=== PATIENT | female | born 1965 | race Caucasian/White ===

== ENCOUNTER 2019-06-17 12:14 | Emergency (ER) | payer BC ==
[~2019-06-17] VITALS: Ht 167.6 cm; Wt 57.6 kg
[~2019-06-17 12:14] MED LIST: FLEXERIL PO; NORCO 5-325 TA1 EACH PO
[2019-06-17] MEDS ORDERED: CLARITIN10 MG PO (12:24)
[2019-06-17 13:04] LABS: ABSOLUTE LYMPHOCYTES 0.8 thou/uL (0.8-5.3); ABSOLUTE MONOCYTES 0.3 thou/uL (0.0-1.2); ABSOLUTE NEUTROPHILS 3.4 thou/uL (1.6-8.1); BASOPHILS 0.7 %; EOSINOPHILS 0.3 %; HEMATOCRIT 39.4 % (37.0-47.0); HEMOGLOBIN 13.7 gm/dL (12.0-15.0); LYMPHOCYTES 17.9 %; MCH 29.3 pg (26.0-34.0); MCHC 34.8 g/dL (28.0-37.0); MCV 84.1 fL (80.0-100.0); MONOCYTES 5.7 %; MPV 6.3 fl. (7.2-11.1); NUCLEATED RBCS 0 /100WBC; PLATELET COUNT* 264 thou/uL (150-400); POLYS 75.4 %; RBC 4.69 mil/uL (4.20-5.00); RDW-CV 14.3 % (10.5-14.5); WBC 4.6 thou/uL (4.0-11.0)
[2019-06-17 13:17] LABS: APTT 26.6 Seconds (25.0-31.3); PROTIME 10.5 Seconds (9.20-11.50)
[2019-06-17 13:19] LABS: CALCIUM 9.4 mg/dL (8.5-10.1); CREATININE 0.8 mg/dL (0.6-1.3); POTASSIUM 4.2 mmol/L (3.5-5.1)
[2019-06-17 13:27] LABS: ALBUMIN 4.2 g/dL (3.4-5.0); TOTAL BILIRUBIN 0.4 mg/dL (<0.1-1.0); TOTAL PROTEIN 7.2 g/dL (6.4-8.2)
--- NOTE | 2019-06-17 14:33 | EKG ---
[place] [address] ELECTROCARDIOGRAM REPORT Name: NISANATACHA Room: [facility]#: [id number] Admission: 06/17/19 Attend Phys: Discharge: Date of : 61 Date of Service: 06/17/19 1219 Report #: [id number] THIS REPORT FOR: //name// [facility] ED Test Date: 2019-06-17 Test Time: 12:19:21 Pat Name: NATACHA PAULA Department: Room: Gender: [employer] Counselor: MARYJANE HERNÁNDEZ : 1965 Requested By: Kalia Castillo Order Number: [id number] : Dhruv Rae Measurements Intervals [place] Rate: 69 P: 73 [place]: 146 QRS: 41 QRSD: 100 T: 64 QT: 435 QTc: 466 Interpretive Statements Sinus rhythm Borderline low voltage, extremity leads Baseline wander in lead(s) V3 No previous ECG available for comparison Electronically Signed On 06-17-2019 14:31:22 CDT by Dhruv Rae [email or web address] <ELECTRONICALLY SIGNED> By: Dhruv Rae MD, [facility] 06/17/19 1431 1219 1219 Dhruv Rae MD, [facility] /EPI
--- NOTE | 2019-06-17 16:34 | EXE ---
[place] [address] STRESS ECHOCARDIOGRAM Name: NATACHA PAULA Room: [facility]#: [id number] Admission: 06/17/19 Attend Phys: Discharge: Date of : 61 Date of Service: 06/17/19 1632 Report #: [id number] THIS REPORT FOR: cc: FAM - No family physician/PCP FAM - No family physician/PCP Dhruv Rae MD [facility] ~ APPROVED REPORT Study performed: 06/17/2019 15:34:36 Exam: Stress Echocardiogram Indication: Chest pain Stress Nurse: Bonnie Ballard RN Supervising Physician: Dhruv Rae MD Status: routine Ht: 5 ft 6 in HR: 71 bpm BP: 108/71 mmHg Rhythm: NSR Medical History Allergies: No known drug allergies Cardiac Risk Factors: FHX of CAD Procedure The patient underwent an Exercise Stress Test using the Caden Protocol. Blood pressure, heart rate, and EKG were monitored. An Echocardiogram was performed by packaging technician in four stages in quad fashion. At peak stress, four selected images were obtained and placed side by side with resting images for comparison. Stress Test Details Stress Test: Exercise stress testing was performed using a Caden protocol. HR Resting HR: 71 bpm Max Heart Rate (APMHR): 164 bpm Max HR Achieved: 154 bpm Target HR (85% APMHR): 139 bpm % of APMHR: 93 Recovery HR: 93 bpm HR response to stress: Normal HR response to stress BP Resting BP: 108/71 mmHg Max BP: 137/66 [place] [address] STRESS ECHOCARDIOGRAM Name: NATACHA PAULA Room: [facility]#: [id number] Admission: 06/17/19 Attend Phys: Discharge: Date of : 61 Date of Service: 06/17/19 1632 Report #: [id number] Recovery BP: 122/67 mmHg BP response to stress: Normal blood pressure response to stress. ECG Resting ECG: Normal EKG Stress ECG: No ischemic st-t changes Clinical Reason for Termination: Maximal effort, Completed protocol Stress Symptoms: NONE Exercise duration: 9 min sec Highest Stage Achieved: Stage 3: 3.4 mph at 14% grade. Exercise capacity: 10.16 METs Pre-Stress Echo The resting Echocardiogram showed normal left ventricular contractility with an estimated Ejection Fraction of about 60-65%. Normal wall motion in all segments on baseline images. Post-Stress Echo The stress Echocardiogram showed normal left ventricular contractility with an estimated Ejection Fraction of about >70%. Normal augmentation of wall motion in all segments on post stress images. Conclusion Clinical Response: Non-ischemic Exercise Capacity: Average Stress ECG Response: Non-ischemic Stress Echo Images: Non-ischemic Other Information Study Quality: Good <ELECTRONICALLY SIGNED> By: Dhruv Rae MD, [facility] 06/17/19 163 31 31 Dhruv Rae MD, FAC /INF
[2019-06-17 17:12] VITALS: BP 116/72
== END 2019-06-17 17:12 | disposition home or self-care (01) ==
LOC: M.ERS 12:14
PROVIDERS: Emergency Medicine
DX: R07.89 Other chest pain (principal)

== ENCOUNTER 2021-02-15 09:43 | Emergency (ER) | payer BC ==
[~2021-02-15] VITALS: Ht 165.1 cm; Wt 65.8 kg
[~2021-02-15 09:43] MED LIST changes: +CLARITIN10 MG PO
[2021-02-15 12:30] LABS: INFLUENZA A ANTIGEN Negative (Negative); INFLUENZA B ANTIGEN Negative (Negative)
== END 2021-02-15 13:11 | disposition home or self-care (01) ==
LOC: M.ERS 09:43
PROVIDERS: Physician Assistant
DX: U07.1 COVID-19 (principal)